=== PATIENT | male | born 1995 | race Hispanic/Latino ===

== ENCOUNTER 2020-06-11 20:18 | Observation (INO) | payer SELFPAY ==
[2020-06-11 20:43] LABS: Hemoglobin 14.3 g/dL (14.0-18.0); Mean Corpuscular HGB CONC 33.2 g/dL (32.0-36.0); Mean Corpuscular Hemoglobin 31.7 pg (27.0-31.0); Mean Corpuscular Volume 95.6 fL (78.0-98.0); Mean Platelet Volume 8.3 fL (7.4-10.4); Platelet Count 348 thou/uL (130-400); RBC Distribution Width 11.9 % (11.5-14.5); White Blood Cell (WBC) Count 31.1 thou/uL (4.8-10.8)
[2020-06-11 21:09] LABS: Band 8 % (5-11); Lymphocytes 5 % (21-51); MDiff Complete? YES; Monocytes 6 % (0-10); Neutrophil 80 % (42-75)
[2020-06-11 21:13] LABS: ALT (SGPT) 18 U/L (8-55); AST (SGOT) 32 U/L (5-34); Albumin 5.4 g/dL (3.5-5.0); Alkaline Phosphatase 121 U/L (40-110); Anion Gap 28 mmol/L (10-20); BUN (Urea Nitrogen) 19 mg/dL (8.9-20.6); Bilirubin, Total 0.2 mg/dL (0.2-1.2); CK (CPK) 979 U/L (30-200); Calc. Creatinine Clearance 0 mL/min (70-130); Calcium 9.4 mg/dL (7.8-10.44); Carbon Dioxide 11 mmol/L (22-29); Chloride 99 mmol/L (98-107); Estimated GFR-MDRD 58; Globulin 3.6 g/dL (2.4-3.5); Glucose 141 mg/dL (70-105); Magnesium 3.2 mg/dL (1.6-2.6); Potassium 3.7 mmol/L (3.5-5.1); Sodium 134 mmol/L (136-145)
[2020-06-11] MEDS ORDERED: Ondansetron PF 4 MG/2 ML Vial ONE (23:31)
--- NOTE | 2020-06-12 00:12 | CT ---
Head CT without contrast 06/11/2020: Comparison: None HISTORY: Seizures TECHNIQUE: Axial CT imaging at 5 mm intervals from vertex through skull base without contrast FINDINGS: The imaged paranasal sinuses and mastoid air cells are well-aerated. No displaced calvarial fracture. No intracranial hemorrhage, midline shift, mass effect, or ventricular enlargement. There is soft tissue swelling inferior and lateral to the right orbit. IMPRESSION: Right-sided facial soft tissue swelling. No displaced fracture or intracranial hemorrhage .
[2020-06-12 01:50] LABS: #Lymphocytes 0.9 thou/uL (1.20-3.40); #Monocytes 2.3 thou/uL (0.11-0.59); #Neutrophils 24.5 thou/uL (1.40-6.50); %Eosinophils 0.1 % (0.0-10.0); %Lymphocytes 3.4 % (21.0-51.0); %Monocytes 8.2 % (0.0-10.0); %Neutrophils 88.3 % (42.0-75.0); Hemoglobin 11.9 g/dL (14.0-18.0); Mean Corpuscular HGB CONC 33.8 g/dL (32.0-36.0); Mean Corpuscular Hemoglobin 31.8 pg (27.0-31.0); Mean Corpuscular Volume 94.1 fL (78.0-98.0); Mean Platelet Volume 8.4 fL (7.4-10.4); Platelet Count 235 thou/uL (130-400); RBC Distribution Width 11.8 % (11.5-14.5); Red Blood Cell (RBC) Count 3.73 mill/uL (4.70-6.10); White Blood Cell (WBC) Count 27.7 thou/uL (4.8-10.8)
[2020-06-12 02:40] LABS: ALT (SGPT) 18 U/L (8-55); AST (SGOT) 37 U/L (5-34); Albumin 4.3 g/dL (3.5-5.0); Alkaline Phosphatase 85 U/L (40-110); Anion Gap 18 mmol/L (10-20); BUN (Urea Nitrogen) 20 mg/dL (8.9-20.6); Bilirubin, Total 0.2 mg/dL (0.2-1.2); Calc. Creatinine Clearance 0 mL/min (70-130); Calcium 8.1 mg/dL (7.8-10.44); Carbon Dioxide 17 mmol/L (22-29); Chloride 103 mmol/L (98-107); Estimated GFR-MDRD 72; Globulin 2.6 g/dL (2.4-3.5); Glucose 74 mg/dL (70-105); Protein, Total 6.9 g/dL (6.0-8.3); Sodium 134 mmol/L (136-145)
[2020-06-12] MEDS ORDERED: Lorazepam 2 MG/ML VIAL ONE (02:56)
[2020-06-12 03:25] LABS: Bacteria/HPF None Seen HPF (None Seen); Bilirubin Negative (Negative); Blood, Urine Trace (Negative); Clarity Clear (Clear); Glucose, Urine (Dipstick) Normal (Negative); Ketone, Urine Negative (Negative); Leukocyte Negative Leu/uL (Negative); Nitrite Negative (Negative); Protein, Urine (Dipstick) Negative (Neg-Trace); RBC/HPF None Seen HPF (0-3); Specific Gravity, Urine 1.002 (1.002-1.036); Squamous Epithelial None Seen HPF (0-3); Urobilinogen Normal mg/dL (Less than 2); WBC/HPF 0-3 HPF (0-3); pH, Urine 5.5 (5.0-9.0)
[2020-06-12 03:42] LABS: Amphetamine Not Detected (NotDetected); Barbiturates Screen Not Detected (NotDetected); Benzodiazepine Screen Not Detected (NotDetected); Cocaine Metabolite Screen Not Detected (NotDetected); Medtox Reader # READER 4; Methadone Not Detected (NotDetected); Methamphetamine Not Detected (NotDetected); Opiate Screen Not Detected (NotDetected); Oxycodone Screen Not Detected (NotDetected); Phencyclidine (PCP) Not Detected (NotDetected); THC/Cannabinoid Screen Not Detected (NotDetected); Tricyclic Screen Not Detected (NotDetected)
[2020-06-12 03:43] LABS: Medtox Control Line Valid? VALID (VALID)
[2020-06-12 04:10] LABS: Acetaminophen Less than 6.0 mcg/mL (10.0-30.0); Alcohol Less than 10 mg/dL (Less than 10); Salicylate Less than 8.0 mg/dL (15.0-30.0)
[2020-06-12] MEDS ORDERED: Lorazepam 2 MG/ML VIAL SLOW IVP PRN ×2 (04:16→04:23)
[2020-06-12] MEDS ORDERED: Ondansetron PF 4 MG/2 ML Vial IVP PRN (04:20)
[2020-06-12] MEDS ORDERED: Guaifenesin DM 100-10/5 ML UDCUP PO PRN (04:20)
[2020-06-12] MEDS ORDERED: cloNIDine 0.1 MG TAB PO PRN (04:20)
[2020-06-12] MEDS ORDERED: Acetaminophen 325 MG TAB PO PRN (04:20)
[2020-06-12] MEDS ORDERED: hydrALAZINE 20 MG/ML VIAL SLOW IVP PRN (04:20)
[2020-06-12] MEDS ORDERED: Promethazine HCl 12.5 MG in Sodium Chloride 0.9% 50 ML IVPB PRN (04:20)
[2020-06-12] MEDS ORDERED: Labetalol HCl 100 MG/20 ML VIAL SLOW IVP PRN (04:20)
[2020-06-12] MEDS ORDERED: Haloperidol Lactate 5 MG/ML VIAL SLOW IVP PRN (04:22)
--- NOTE | 2020-06-12 04:24 | PDOC.HHP ---
Hospitalist HPI - History of Present Illness Seizure History of Present Illness: Patient is a 24 year old male with PMH K2 abuse, seizure disorder, anxiety, bipolar disorder, depression, schizophrenia who presented to ED for seizure. Patient smoked K2 at home and had a seizure, EMS came to house and apparently patient was uncooperative and EMS refused to bring patient to ED, fire department called 20 mintues later after second seizure and brought patient to ED restrained, he had swelling to R cheek where he bit himself. He admitted to K2 abuse, which has given him seizures in past. He was monitored for several hours in ED and eventual had another seizure, prompting admission. When I see patient, he is not cooperative, covering himself with a blanker and refusing to come out. Nursing reports patient has been like this since he got here. Not answering my questions. Chart review reveals WBC 31, CK 979 -> 1517, CO2 11, Cr 1.5. CT head with swollen R facial soft tissue (likely cheek), no fracture or IC processes. ED note also noted PCP use, UDS pending. Hospitalist ROS - Review of Systems ROS unobtainable: due to mental status (postictal and noncooperative/combative) Hospitalist History - Past Medical History Other Medical History: seizure disorder, anxiety, bipolar disorder, depression, schizophrenia - Past Surgical History Past Surgical History: reports: no pertinent history - Family History Family History: reports: no pertinent history - Social History Smoking Status: Current every day smoker Alcohol: reports: Occassional (less than 5 drinks a day) Drugs: reports: marijuana, Other (k2) - Exam General Appearance: NAD, awake alert Eye: PERRL, anicteric sclera ENT: normocephalic atraumatic, no oropharyngeal lesions, moist mucosa Neck: supple, symmetric, no JVD, no thyromegaly, no lymphadenopathy, no carotid bruit Heart: RRR, no murmur, no gallops, no rubs, normal peripheral pulses Respiratory: CTAB, no wheezes, no rales, no ronchi, normal chest expansion, no tachypnea, normal percussion Gastrointestinal: soft, non-tender, non-distended, normal bowel sounds, no palpable masses, no hepatomegaly, no splenomegaly, no bruit Extremities: no cyanosis, no clubbing, no edema Skin: normal turgor, no lesions, no rashes Neurological: cranial nerve grossly intact, normal sensation to touch, no weakness, no focal deficits, no new deficit Neurological - other findings: combative/noncompliant, postictal, altered, moving all extremities Musculoskeletal: normal tone, normal strength, no muscle wasting Psychiatric - other findings: unable to evaluate Hospitalist Results - Labs Result Diagrams: 06/12/20 01:34 06/12/20 02:11 Lab results: WBC 27.7 thou/uL (4.8-10.8) H 06/12/20 01:34 Hgb 11.9 g/dL (14.0-18.0) L 06/12/20 01:34 Hct 35.1 % (42.0-52.0) L 06/12/20 01:34 MCV 94.1 fL (78.0-98.0) 06/12/20 01:34 Plt Count 235 thou/uL (130-400) 06/12/20 01:34 Neutrophils % 88.3 % (42.0-75.0) H 06/12/20 01:34 Band Neuts % (Manual) 8 % (5-11) 06/11/20 20:32 Sodium 134 mmol/L (136-145) L 06/12/20 02:11 Potassium 4.0 mmol/L (3.5-5.1) 06/12/20 02:11 Chloride 103 mmol/L (98-107) 06/12/20 02:11 Carbon Dioxide 17 mmol/L (22-29) L 06/12/20 02:11 BUN 20 mg/dL (8.9-20.6) 06/12/20 02:11 Creatinine 1.26 mg/dL (0.7-1.3) 06/12/20 02:11 Glucose 74 mg/dL (70-105) 06/12/20 02:11 Calcium 8.1 mg/dL (7.8-10.44) 06/12/20 02:11 Total Bilirubin 0.2 mg/dL (0.2-1.2) 06/12/20 02:11 AST 37 U/L (5-34) H 06/12/20 02:11 ALT 18 U/L (8-55) 06/12/20 02:11 Alkaline Phosphatase 85 U/L (40-110) 06/12/20 02:11 Creatine Kinase 1517 U/L (30-200) H 06/12/20 01:34 Serum Total Protein 6.9 g/dL (6.0-8.3) 06/12/20 02:11 Albumin 4.3 g/dL (3.5-5.0) 06/12/20 02:11 Urine Ketones Negative mg/dL (Negative) 06/12/20 03:03 Urine Blood Trace (Negative) A 06/12/20 03:03 Urine Nitrite Negative (Negative) 06/12/20 03:03 Ur Leukocyte Esterase Negative Pj/uL (Negative) 06/12/20 03:03 Urine RBC None Seen HPF (0-3) 06/12/20 03:03 Urine WBC 0-3 HPF (0-3) 06/12/20 03:03 Ur Squamous Epith Cells None Seen HPF (0-3) 06/12/20 03:03 Urine Bacteria None Seen HPF (None Seen) 06/12/20 03:03 Additional comment: VITAL SIGNS Gloria Jun 12, 2020 03:03 SARA Lopez, Ashlie BP: 139/66 Pulse: 98 Resp: 20 Pain: 0 O2 sat: 96 on (Room Air) Time: 06/12/2020 03:03. all labs, ED notes, imaging reports, EKGs reviewed by me. - EKG Interpretation EKG: nsr [address] changes, no dropped beats Hospitalist H&P A/P - Plan Plan: Patient is a 24 year old male with PMH K2 abuse, seizure disorder, anxiety, bipolar disorder, depression, schizophrenia who presented to ED for seizure. # K2 abuse # possible PCP abuse # altered mental status # seizure - likely secondary to drug use # history of alcohol abuse # anxiety, bipolar disorder, depression, schizophrenia - admit to floor - seizure precautions - PRN ativan - keppra - monitor closely, may benefit from MR evaluation before discharge, PRN medications in case patient becomes combative # rhabdomyolysis # leukocytosis # metabolic acidosis # KEVIN suspect these are due to K2 and seizure, rhabdomyolysis is known toxicty of k2 - continue high rate IVF - trend CK/BMP # DVT/GI ppx full code
[2020-06-12] MEDS ORDERED: Electrolyte Replacement Protoc 1 EACH EACH FS SCH (04:30)
[2020-06-12] MEDS ORDERED: levETIRAcetam In NaCl (Iso-Os) 1,000 MG in Premix Bag 1 BAG IVPB SCH ×2 (04:30→21:00)
[2020-06-12] MEDS: Sodium Chloride 0.9% 1,000 ML IV SCH ×2 (05:06→10:48)
[2020-06-12 06:04] VITALS: BMI 25.2
[2020-06-12 08:15] VITALS: BP 122/73; TEMP 99
[2020-06-12] MEDS ORDERED: Famotidine 20 MG TAB PO SCH (09:00)
[2020-06-12] MEDS ORDERED: Polyethylene Glycol 3350 17 GM Packet PO SCH (09:00)
[2020-06-12] MEDS ORDERED: Enoxaparin Sodium 40 MG/0.4 ML SYRINGE SC SCH (21:00)
--- NOTE | 2020-06-13 08:15 | DIS ---
DATE OF ADMISSION: 06/12/2020 DATE OF DISCHARGE: 06/12/2020 He left AMA on 06/12/2020. DISCHARGE DIAGNOSES: Seizure secondary to K2 abuse rhabdomyolysis acute kidney injury HOSPITAL COURSE: Patient is a 24-year-old male past medical history of K2 abuse, seizure disorder, anxiety, bipolar disorder, depression, and schizophrenia, presented to the ED for seizure. The patient admits to smoking K2 at home and had a seizure prior to coming to emergency department. When EMS arrived to patient's house, the patient was uncooperative. The patient had a second seizure and was then brought into the emergency department. In the ED, he admits to K2 abuse, which has given him seizures in the past. While he was in the emergency department, he was monitored for several hours and had another seizure, which prompted his admission. Upon exam, the patient is uncooperative. He is refusing to be examined. The bedside nurse alerted myself to patient's desire to leave the hospital. I discussed with the patient, desire for him to stay and further evaluation by Neurology. He continued to voice desire to leave. The patient was counseled on cessation of K2 and other illicit substances. The patient then left the hospital against medical advice. Job ID: [id number] MTDD
--- NOTE | 2020-06-14 13:15 | EKG ---
Test Reason : Blood Pressure : / mmHG Vent. Rate : 073 BPM Atrial Rate : 073 BPM P-R Int : 176 ms QRS Dur : 090 ms QT Int : 372 ms P-R-T Axes : 055 012 046 degrees QTc Int : 409 ms Sinus rhythm with marked sinus arrhythmia Minimal voltage criteria for LVH, may be normal variant Borderline ECG Confirmed by ANKITA HEATON M.D. ([id number]), publishing editor IVANA DE LA ROSA ([id number]) on 06/14/2020 1:15:26 PM Referred By: Confirmed By:ANKITA HEATON M.D.
== END 2020-06-12 12:05 | disposition left against medical advice (07) ==
LOC: ERS 20:18 → 2NO 06-12 04:41
PROVIDERS: ADMIT Internal Medicine; ATTEND Internal Medicine
DX: F12.10 Cannabis abuse, uncomplicated (principal); G40.909 Epilepsy, unspecified, not intractable, without status epilepticus; M62.82 Rhabdomyolysis; N17.9 Acute kidney failure, unspecified; F41.9 Anxiety disorder, unspecified; F31.9 Bipolar disorder, unspecified; F20.9 Schizophrenia, unspecified; F17.210 Nicotine dependence, cigarettes, uncomplicated; D72.829 Elevated white blood cell count, unspecified; E87.2 Acidosis; Z53.29 Procedure and treatment not carried out because of patient's decision for other reasons
CPT/HCPCS: 36415; 36416; 70450; 80053; 80306; 80307; 81003; 81015; 82550; 83735; 85025; 93005; 96361; 96374; 96375; G0378; J1953; J2060; J2405

== ENCOUNTER 2020-06-21 17:10 | Emergency (ER) | payer SELFPAY ==
[2020-06-21] MEDS ORDERED: Boostrix 0.5 ML VIAL ONE (17:32)
[2020-06-21] MEDS ORDERED: Lidocaine 1% PF 5 ML VIAL ONE (17:32)
[2020-06-21] MEDS ORDERED: Bacitracin 1 PK ONE ×2 (17:58→18:09)
[2020-06-21] MEDS ORDERED: Cephalexin 250 MG CAP ONE (18:09)
--- NOTE | 2020-06-21 18:31 | RAD ---
RIGHT SMALL FINGER TWO VIEWS: 06/21/20 INDICATION: History of right small finger injury. FINDINGS: No acute fracture, subluxation is evident. There is soft tissue swelling in the distal tip of the ri ght small digit. No radiopaque foreign body is evident. IMPRESSION: No acute osseous abnormality. POS: BH
== END 2020-06-21 18:15 ==
LOC: EEVIPCON 17:10 → ERS 17:10
DX: S61.217A Laceration without foreign body of left little finger without damage to nail, initial encounter (principal); F41.9 Anxiety disorder, unspecified; F31.9 Bipolar disorder, unspecified; F20.9 Schizophrenia, unspecified; W25.XXXA Contact with sharp glass, initial encounter
CPT/HCPCS: 90471; 90715

== ENCOUNTER 2020-11-08 00:58 | Emergency (ER) | payer SELFPAY ==
--- NOTE | 2020-11-08 08:58 | CT ---
PRELIMINARY REPORT/[facility]/EMERGENCY AFTER HOURS PROCEDURE: EXAM: CT Head and Cervical Spine Without IV contrast. CLINICAL HISTORY: PT FOUND IN ROADWAY, APPEARS INTOXICATED. TECHNIQUE: Axial computed tomography images were acquired of the head and the cervical spine without intravenous contrast. Sagittal and coronal reformatted images were obtained of the cervical spine. COMPARISON: None provided. FINDINGS: BRAIN: No acute intraparenchymal hemorrhage. No mass lesion. No CT evidence for acute territorial infarct. N o midline shift or extra-axial collection. VENTRICLES No hydrocephalus. ORBITS The orbits are unremarkable. SINUSES AND MASTOIDS The paranasal sinuses and mastoid air cells are clear. SOFT TISSUES No significant facial or scalp soft tissue swelling evident. No radiopaque foreign body is seen. BONES No acute osseous pathology evident. No acute fracture is evident on images of the head or cervical spine. DISKS/DEGENERATIVE CHANGES No significant disc or facet degeneration. Posterior cervical spine vertebral body alignment is within normal limits. IMPRESSION: 1. No acute intracranial findings. No acute intracranial injury evident. 2. No cervical spine fracture evident. ELECTRONICALLY SIGNED BY: Bulmaro Ortiz MD Nov 08, 2020 1:49:27 AM UNIT REACTOR OPERATOR This report is intended for review by the ordering physician only, in accordance of law. If you recei ve this report in error, please call [facility] at [phone]. FINAL REPORT BRAIN CT WITHOUT IV CONTRAST EMERGENCY AFTER HOURS EXAM 1:29 A.M. 11/08/2020 IMPRESSION: No significant acute intracranial process. This report is in agreement with preliminary report by [facility]. POS: RRE
--- NOTE | 2020-11-08 08:59 | CT ---
PRELIMINARY REPORT/[facility]/EMERGENCY AFTER HOURS PROCEDURE: EXAM: CT Head and Cervical Spine Without IV contrast. CLINICAL HISTORY: PT FOUND IN ROADWAY, APPEARS INTOXICATED. TECHNIQUE: Axial computed tomography images were acquired of the head and the cervical spine without intravenous contrast. Sagittal and coronal reformatted images were obtained of the cervical spine. COMPARISON: None provided. FINDINGS: BRAIN: No acute intraparenchymal hemorrhage. No mass lesion. No CT evidence for acute territorial infarct. N o midline shift or extra-axial collection. VENTRICLES No hydrocephalus. ORBITS The orbits are unremarkable. SINUSES AND MASTOIDS The paranasal sinuses and mastoid air cells are clear. SOFT TISSUES No significant facial or scalp soft tissue swelling evident. No radiopaque foreign body is seen. BONES No acute osseous pathology evident. No acute fracture is evident on images of the head or cervical spine. DISKS/DEGENERATIVE CHANGES No significant disc or facet degeneration. Posterior cervical spine vertebral body alignment is within normal limits. IMPRESSION: 1. No acute intracranial findings. No acute intracranial injury evident. 2. No cervical spine fracture evident. ELECTRONICALLY SIGNED BY: Bulmaro Ortiz MD Nov 08, 2020 1:49:27 AM CASTING ASSOCIATE This report is intended for review by the ordering physician only, in accordance of law. If you recei ve this report in error, please call [facility] at [phone]. FINAL REPORT CERVICAL SPINE CT SCAN WITHOUT IV CONTRAST EMERGENCY AFTER HOURS EXAM 1:29 A.M. 11/08/2020 IMPRESSION: There is considerable rotation of the head and neck. No fracture or dislocation. This report is in agreement with preliminary report by [facility]. POS: RRE
== END 2020-11-08 02:25 ==
LOC: ERS 00:58
DX: R41.82 Altered mental status, unspecified (principal); F10.129 Alcohol abuse with intoxication, unspecified; F17.210 Nicotine dependence, cigarettes, uncomplicated
CPT/HCPCS: 70450; 72125

== ENCOUNTER 2020-11-17 15:05 | Emergency (ER) | payer SELFPAY ==
[2020-11-17] MEDS ORDERED: Lorazepam 2 MG/ML VIAL ONE (15:38)
[2020-11-17 15:51] LABS: Bacteria/HPF None Seen HPF (None Seen); Bilirubin Negative (Negative); Clarity Clear (Clear); Glucose, Urine (Dipstick) Normal (Negative); Ketone, Urine 20 mg/dL (Negative); Leukocyte Negative Leu/uL (Negative); Nitrite Negative (Negative); Protein, Urine (Dipstick) 30 mg/dL (Neg-Trace); Specific Gravity, Urine 1.016 (1.002-1.036); Squamous Epithelial None Seen HPF (0-3); Urobilinogen Normal mg/dL (Less than 2); WBC/HPF 0-3 HPF (0-3)
[2020-11-17 15:53] LABS: Blood, Urine Small (Negative)
[2020-11-17 15:54] LABS: RBC/HPF 0-3 HPF (0-3)
[2020-11-17 16:05] LABS: Amphetamine Not Detected (NotDetected); Barbiturates Screen Not Detected (NotDetected); Benzodiazepine Screen Not Detected (NotDetected); Cocaine Metabolite Screen Not Detected (NotDetected); Medtox Control Line Valid? VALID (VALID); Medtox Reader # READER 1; Methadone Not Detected (NotDetected); Methamphetamine Detected (NotDetected); Opiate Screen Not Detected (NotDetected); Oxycodone Screen Not Detected (NotDetected); Phencyclidine (PCP) Not Detected (NotDetected); THC/Cannabinoid Screen Not Detected (NotDetected); Tricyclic Screen Not Detected (NotDetected)
--- NOTE | 2020-11-17 16:36 | CT ---
CT BRAIN WITHOUT CONTRAST: HISTORY: Seizure, altered mental status COMPARISON: 11/08/2020 FINDINGS: No evidence of acute infarct, hemorrhage, midline shift or abnormal extra-axial fluid collections is seen. The ventricular size is appropriate and the basilar cisterns are patent. The bony calvarium is intact. The mastoid air cells are well aerated. A small mucous retention cyst versus polyp in the left maxillary sinus is again seen. IMPRESSION: No CT evidence of acute intracranial process.
[2020-11-17 16:59] LABS: #Lymphocytes 0.5 thou/uL (1.20-3.40); #Monocytes 0.8 thou/uL (0.11-0.59); #Neutrophils 16.4 thou/uL (1.40-6.50); %Basophils 0.3 % (0.0-1.0); %Eosinophils 0.1 % (0.0-10.0); %Lymphocytes 2.8 % (21.0-51.0); %Monocytes 4.4 % (0.0-10.0); %Neutrophils 92.5 % (42.0-75.0); Hemoglobin 12.1 g/dL (14.0-18.0); Mean Corpuscular HGB CONC 33.8 g/dL (32.0-36.0); Mean Corpuscular Hemoglobin 31.3 pg (27.0-31.0); Mean Corpuscular Volume 92.7 fL (78.0-98.0); Mean Platelet Volume 8.4 fL (7.4-10.4); Platelet Count 229 thou/uL (130-400); RBC Distribution Width 11.6 % (11.5-14.5); Red Blood Cell (RBC) Count 3.87 mill/uL (4.70-6.10); White Blood Cell (WBC) Count 17.7 thou/uL (4.8-10.8)
[2020-11-17 17:21] LABS: ALT (SGPT) 23 U/L (8-55); AST (SGOT) 75 U/L (5-34); Albumin 4.3 g/dL (3.5-5.0); Alkaline Phosphatase 83 U/L (40-110); Anion Gap 25 mmol/L (10-20); BUN (Urea Nitrogen) 11 mg/dL (8.9-20.6); Bilirubin, Total 0.4 mg/dL (0.2-1.2); Calc. Creatinine Clearance 0 mL/min (70-130); Calcium 8.3 mg/dL (7.8-10.44); Carbon Dioxide 14 mmol/L (22-29); Chloride 104 mmol/L (98-107); Globulin 3.1 g/dL (2.4-3.5); Glucose 70 mg/dL (70-105); Potassium 3.5 mmol/L (3.5-5.1); Protein, Total 7.4 g/dL (6.0-8.3); Sodium 139 mmol/L (136-145)
[2020-11-17] MEDS ORDERED: levETIRAcetam 2,000 MG in Sodium Chloride 0.9% 100 ML IVPB SCH (19:15)
== END 2020-11-17 20:12 ==
LOC: ERS 15:05
DX: R56.9 Unspecified convulsions (principal); F17.210 Nicotine dependence, cigarettes, uncomplicated
CPT/HCPCS: 36415; 51701; 70450; 80053; 80306; 81003; 81015; 85025; 93005; 96365; 96375; J1953; J2060; J3490

== ENCOUNTER 2021-01-31 02:12 | Observation (INO) | payer SELFPAY ==
[2021-01-31] MEDS ORDERED: Midazolam HCl 5 mg/ml Vial ONE ×2 (02:16→02:21)
[2021-01-31 02:57] LABS: Hemoglobin 15.3 g/dL (14.0-18.0); Mean Corpuscular HGB CONC 30.5 g/dL (32.0-36.0); Mean Corpuscular Hemoglobin 30.2 pg (27.0-31.0); Mean Platelet Volume 8.5 fL (7.4-10.4); Platelet Count 354 thou/uL (130-400); RBC Distribution Width 12.7 % (11.5-14.5); Red Blood Cell (RBC) Count 5.07 mill/uL (4.70-6.10); White Blood Cell (WBC) Count 21.8 thou/uL (4.8-10.8)
[2021-01-31 03:01] LABS: Acetaminophen Less than 6.0 mcg/mL (10.0-30.0); Alcohol Less than 10 mg/dL (Less than 10); Salicylate Less than 8.0 mg/dL (15.0-30.0)
[2021-01-31 03:03] LABS: ALT (SGPT) 19 U/L (8-55); AST (SGOT) 27 U/L (5-34); Albumin 5.4 g/dL (3.5-5.0); Alkaline Phosphatase 128 U/L (40-110); BUN (Urea Nitrogen) 7 mg/dL (8.9-20.6); Bilirubin, Total 0.5 mg/dL (0.2-1.2); Calc. Creatinine Clearance 0 mL/min (70-130); Calcium 10.2 mg/dL (7.8-10.44); Chloride 105 mmol/L (98-107); Globulin 4.3 g/dL (2.4-3.5); Glucose 158 mg/dL (70-105); Potassium 3.9 mmol/L (3.5-5.1); Protein, Total 9.7 g/dL (6.0-8.3); Sodium 139 mmol/L (136-145)
[2021-01-31 03:05] LABS: Carbon Dioxide Less than 8 mmol/L (22-29)
[2021-01-31 03:13] LABS: Band 1 % (5-11); Lymphocytes 18 % (21-51); MDiff Complete? YES; Monocytes 7 % (0-10); Neutrophil 74 % (42-75)
[2021-01-31 03:28] LABS: Actual Bicarbonate (HCO3a) 13.4 mEq/L (22-28); Analyzer IN Cardio ER; Base Excess (BEa) -13.4 mEq/L (-2.0 to +3.0); CO2 Tension 34.8 mmHg (35.0-45.0); Calcium, Ionized (arterial) 1.22 mmol/L (1.12-1.30); Carboxyhemoglobin (COHb) 0.4 gm% (0.0-3.0); Hemoglobin (Hb) 15.6 g/dL (14.0-18.0); Potassium - ABG Lab 4.79 mmol/L (3.70-5.30)
[2021-01-31 03:29] LABS: pH, Arterial 7.21 (7.35-7.45)
[2021-01-31 03:30] LABS: O2 Tension (PaO2), arterial 28.4 mmHg (80.0-100.0); Puncture Site RBA
[2021-01-31 04:38] LABS: Amphetamine Not Detected (NotDetected); Barbiturates Screen Not Detected (NotDetected); Benzodiazepine Screen Not Detected (NotDetected); Cocaine Metabolite Screen Not Detected (NotDetected); Medtox Control Line Valid? VALID (VALID); Medtox Reader # READER 4; Methadone Not Detected (NotDetected); Methamphetamine Not Detected (NotDetected); Opiate Screen Not Detected (NotDetected); Oxycodone Screen Not Detected (NotDetected); Phencyclidine (PCP) Not Detected (NotDetected); THC/Cannabinoid Screen Not Detected (NotDetected); Tricyclic Screen Not Detected (NotDetected)
[2021-01-31] MEDS ORDERED: levETIRAcetam in NS 100 ML ONE (05:32)
[2021-01-31] MEDS ORDERED: Ondansetron PF 4 MG/2 ML Vial ONE (08:58)
[2021-01-31] MEDS ORDERED: Pantoprazole 40 MG VIAL IVP SCH (09:00)
[2021-01-31] MEDS ORDERED: Ondansetron ODT 4 MG TAB PO PRN (09:01)
[2021-01-31] MEDS ORDERED: Lorazepam 2 MG/ML VIAL SLOW IVP PRN (09:01)
[2021-01-31] MEDS ORDERED: Ondansetron PF 4 MG/2 ML Vial IVP PRN (09:01)
[2021-01-31 09:36] LABS: #Basophils 0.1 thou/uL (0.0-0.2); #Lymphocytes 1.4 thou/uL (1.20-3.40); #Monocytes 2.8 thou/uL (0.11-0.59); #Neutrophils 22.2 thou/uL (1.40-6.50); %Basophils 0.2 % (0.0-1.0); %Eosinophils 0.1 % (0.0-10.0); %Lymphocytes 5.3 % (21.0-51.0); %Monocytes 10.4 % (0.0-10.0); %Neutrophils 84.1 % (42.0-75.0); Hemoglobin 13.8 g/dL (14.0-18.0); Mean Corpuscular HGB CONC 32.8 g/dL (32.0-36.0); Mean Corpuscular Hemoglobin 31.2 pg (27.0-31.0); Platelet Count 234 thou/uL (130-400); RBC Distribution Width 12.6 % (11.5-14.5); Red Blood Cell (RBC) Count 4.43 mill/uL (4.70-6.10); White Blood Cell (WBC) Count 26.4 thou/uL (4.8-10.8)
[2021-01-31] MEDS: Sodium Chloride 0.9% 1,000 ML IV SCH ×2 (09:40→22:14)
[2021-01-31 09:54] LABS: Anion Gap 15 mmol/L (10-20); BUN (Urea Nitrogen) 8 mg/dL (8.9-20.6); Calc. Creatinine Clearance 0 mL/min (70-130); Carbon Dioxide 18 mmol/L (22-29); Chloride 108 mmol/L (98-107); Glucose 75 mg/dL (70-105); Potassium 3.9 mmol/L (3.5-5.1); Sodium 137 mmol/L (136-145)
[2021-01-31] MEDS ORDERED: Pantoprazole 40 MG VIAL ONE (09:54)
[2021-01-31 16:38] LABS: SARS-CoV-2 PCR by NAA Not Detected (NotDetected)
[2021-01-31 18:13] VITALS: BMI 23.0
[2021-01-31] MEDS ORDERED: Haloperidol Lactate 5 MG/ML VIAL IM PRN (20:18)
[2021-01-31] MEDS ORDERED: Lorazepam 1 MG TAB PO PRN (20:20)
[2021-02-01] MEDS: Sodium Chloride 0.9% 1,000 ML IV SCH ×3 (04:42→17:29)
[2021-02-01 12:28] VITALS: BP 99/54
[2021-02-01 17:23] VITALS: TEMP 97.9
== END 2021-02-01 17:17 | disposition left against medical advice (07) ==
LOC: ERS 02:12 → ERHOLD 06:02 → 2SE 17:52
PROVIDERS: ADMIT Internal Medicine; ATTEND Internal Medicine
DX: G40.909 Epilepsy, unspecified, not intractable, without status epilepticus (principal); E87.2 Acidosis; D72.829 Elevated white blood cell count, unspecified; R41.82 Altered mental status, unspecified; F17.210 Nicotine dependence, cigarettes, uncomplicated; F12.10 Cannabis abuse, uncomplicated; F14.10 Cocaine abuse, uncomplicated; F15.10 Other stimulant abuse, uncomplicated; Z20.822 Contact with and (suspected) exposure to COVID-19; Z53.29 Procedure and treatment not carried out because of patient's decision for other reasons
CPT/HCPCS: 36415; 36600; 51701; 70450; 71045; 80053; 80306; 80307; 82805; 84146; 85025; 87040; 87086; 87635; 93005; 96365; 96372; 96375; C9113; G0378; J1953; J2250; J2405; U0003; U0005